=== PATIENT | male | born 1960 | race Hispanic/Latino ===

== ENCOUNTER 2018-03-31 06:07 | Day surgery (SDC) | payer BC ==
[2018-03-23 12:04] VITALS: BMI 36.9
[2018-03-31] MEDS ORDERED: Lidocaine 2% Inj (20ml) ONE (06:30)
[2018-03-31] MEDS ORDERED: Iodixanol 320 MG/ML 100 ML BOTTLE IV ONE (06:31)
[2018-03-31] MEDS ORDERED: Iohexol 350mgl/ml 50 ML ONE (06:31)
[2018-03-31] MEDS ORDERED: Nitroglycerin 50mg in D5W 0 MG/0 ML BOTTLE IV ONE (06:31)
[2018-03-31] MEDS ORDERED: Phenylephrine 10 mg/ml Inj ONE (06:31)
[2018-03-31] MEDS ORDERED: Iodixanol 320 MG/ML 200 ML BOTTLE IV ONE (06:31)
[2018-03-31 06:45] VITALS: RESP 18
[2018-03-31] MEDS ORDERED: Midazolam 2 MG/2 ML VIAL ONE ×2 (07:44→08:00)
[2018-03-31] MEDS ORDERED: Sodium Chloride 0.9% 1,000 ML IV SCH (08:45)
[2018-03-31 09:02] VITALS: TEMP 97.5
--- NOTE | 2018-03-31 09:56 | CARDCATH ---
PROCEDURE DATE: 03/31/2018 PROCEDURES: 1. Selective left and right coronary angiography. 2. Left ventriculography. 3. Right femoral arteriography. 4. Angio-Seal deployment. HISTORY: This is a 57-year-old man with a history of hypertension, who was recently evaluated for chest pain. A stress test showed evidence of questionable anterior ischemia and cardiac catheterization was advised. INDICATIONS: 1. Chest pain. 2. Abnormal stress test. FINDINGS: HEMODYNAMICS: Aortic pressure was 116/70 with left ventricular pressure of 116/14. CORONARY ANATOMY: 1. The left mainstem was large and normal. 2. The left anterior descending artery was moderately calcified in its proximal segment. There was a long tubular 50% stenosis noted within the proximal segment. This was followed by 50% lesion after the takeoff of the first septal direct marketing specialist. The distal LAD had mild irregularities and was a moderate-sized vessel. The diagonal branches had no evidence of significant disease. 3. The left circumflex artery and its branches had no significant disease. 4. The right coronary artery was dominant with a 50% lesion in its distal segment. Posterior descending artery was fairly small as was posterolateral branch. These were free of disease. LEFT VENTRICULOGRAPHY: A hand injection was performed in the left ventricle revealing mild to moderate focal mid anterolateral hypokinesis with normal ejection fraction of 50%. There was no aortic valve gradient noted on catheter pullback. Mitral regurgitation was not assessed. RIGHT FEMORAL ARTERIOGRAPHY: A right femoral arteriogram was performed in the STINSON projection. This revealed no evidence of significant disease in the appropriate level of arterial puncture. The puncture site was then closed with deployment of an Angio-Seal device. CONCLUSION: 1. Moderate proximal and mid left anterior descending disease. 2. Moderate distal right coronary artery disease. 3. Mildly reduced left ventricular systolic function. RECOMMENDATIONS: Given the above findings, intensified risk factor control and medical therapy will be advised. Beta carlito has initiated. Aspirin will continue. Statin therapy will be initiated as well. The patient is already on an angiotensin receptor carlito. Weight loss and regular exercise will be encouraged. A followup stress testing will be planned as needed. Yobany Alston MD cc: Dennis Gonzalez MD. [facility] # [id number]
[2018-03-31 10:42] VITALS: O2SAT 94
[2018-03-31 10:57] VITALS: PULSE 65
[2018-03-31 11:16] VITALS: BP 143/92
== END 2018-03-31 12:00 | disposition home or self-care (01) ==
LOC: CATH 06:07
PROVIDERS: ATTEND Internal Medicine Cardiovascular Disease
DX: I25.10 Atherosclerotic heart disease of native coronary artery without angina pectoris (principal); I10 Essential (primary) hypertension
CPT/HCPCS: 36415; 86850; 86900; 93458; 99152; 99153; C1760; C1769; C2629; J1644; J2250; J3010; J7030 ×2; Q9966; Q9967 ×2

== ENCOUNTER 2019-01-25 10:36 | Emergency (ER) | payer OTHER, BC ==
[2019-01-25 10:46] VITALS: BMI 34.4
--- NOTE | 2019-01-25 11:29 | ED PDOC ---
Arrival/HPI - General Chief Complaint: Upper Extremity Problem/Injury Time Seen by Provider: 01/25/19 11:14 Historian: Patient - History of Present Illness Narrative History of Present Illness (Text): 01/25/19 11:28 58 M with no significant pmh presents with cc of upper left arm pain. Patient reports that while he was lifting a heavy object while he was on his knees, he felt a tear on his upper left arm. Patient denies any chest pain, back pain, neck pain, or any other physical complaint. 01/25/19 11:55 Time/Duration: 24 hours Symptom Onset: Sudden Symptom Course: Unchanged Activities at Onset: Significant Context: Work Past Medical History - Provider Review Nursing Documentation Reviewed: Yes - Infectious Disease Hx of Infectious Diseases: None - Tetanus Immunization Tetanus Immunization: Unknown - Cardiac Hx Cardiac Disorders: Yes Hx Hypertension: Yes - Pulmonary Hx Respiratory Disorders: No - Neurological Hx Neurological Disorder: No - HEENT Hx HEENT Disorder: No - Renal Hx Renal Disorder: No - Endocrine/Metabolic Hx Endocrine Disorders: No - Hematological/Oncological Hx Blood Disorders: No - Integumentary Hx Dermatological Disorder: No - Musculoskeletal/Rheumatological Hx Musculoskeletal Disorders: No - Gastrointestinal Hx Gastrointestinal Disorders: Yes Hx Crohn's Disease: Yes - Genitourinary/Gynecological Hx Genitourinary Disorders: No - Psychiatric Hx Psychophysiologic Disorder: No Hx Substance Use: No - Surgical History Other/Comment: Lap Band Surgey - Anesthesia Hx Anesthesia Reactions: No - Suicidal Assessment Feels Threatened In Home Enviroment: No Family/Social History - Physician Review Nursing Documentation Reviewed: Yes Family/Social History: Unknown Family HX Smoking Status: Never Smoked Hx Alcohol Use: No Hx Substance Use: No Hx Substance Use Treatment: No Allergies/Home Meds Allergies/Adverse Reactions: Allergies Penicillins Allergy (Verified 01/25/19 10:46) ANAPHYLAXIS Home Medications: Home Meds Medication Instructions Recorded Confirmed Aspirin [Ecotrin] 81 mg PO DAILY 02/18/16 01/25/19 Metoprolol Succinate XL [Toprol XL] 50 mg PO DAILY 03/23/18 01/25/19 Amlodipine/Valsartan [Exforge 10 1 tab PO DAILY 03/25/18 01/25/19 mg-320 mg] Rosuvastatin Calcium [Crestor] 20 mg PO DAILY 03/31/18 01/25/19 Esomeprazole Magnesium [Nexium] 20 mg PO DAILY 01/25/19 01/25/19 Meloxicam [Mobic] 15 mg PO DAILY 01/25/19 01/25/19 Review of Systems - Physician Review All systems were reviewed & negative as marked: Yes - Review of Systems Constitutional: Normal Eyes: Normal ENT: Normal Respiratory: Normal Cardiovascular: Normal Gastrointestinal: Normal Genitourinary Male: Normal Musculoskeletal: Myalgias (Left upper arm) Skin: Normal Neurological: Normal Endocrine: Normal Hemo/Lymphatic: Normal Psychiatric: Normal Physical Exam - Physical Exam Narrative Physical Exam (Text): 01/25/19 11:35 Gen: VS reviewed, alert, well developed, well nourished, nontoxic, mild distress Eye: EOMI, PERRL CV: regular rate, regular rhythm, no rubs,no murmur, S1, S2 Pulm: no distress, clear to auscultation, no wheeze, no rhonchi, breath sounds equal, no rales Ext: no edema. Able to flex arm at elbow with diminished strength. Bulge deformity distal biceps head Skin: good color, no rash, no cyanosis Psych: responds appropriately to questions, normal affect Neuro: oriented x3, CN2-12 intact grossly, motor intact, sensation intact 01/25/19 11:56 Vital Signs Temp Pulse Resp BP Pulse Ox 01/25/19 10:48 98.2 F 69 18 124/79 95 Medical Decision Making ED Course and Treatment: 01/25/19 11:53 Impression: 58 M presents with cc of upper left arm pain Plan: -- Left humerus X Ray -- Reassess and disposition Prior Visits: Notes and results from previous visits were reviewed. Progress Notes: 01/25/19 11:57 patient seen for left upper biceps muscle pain after lifting heavy object, clinically consistent with tear, will get xray to rule out avulsion fracture, will splint and refer to ortho. - RAD Interpretation Narrative RAD Interpretations (Text): 01/25/19 12:51 Humerus X Ray FINDINGS: BONES: Normal. No fracture or focal lesion. SOFT TISSUES: Normal. OTHER FINDINGS: None. IMPRESSION: Normal radiographs of left humerus. Radiology Orders: 01/25/19 11:22 HUMERUS LEFT [RAD] Stat Supervisor Car Installations: Radiologist - Scribe Statement The provider has reviewed the documentation as recorded by the Gladys Bruno All medical record entries made by the Scribe were at my direction and personally dictated by me. I have reviewed the chart and agree that the record accurately reflects my personal performance of the history, physical exam, medical decision making, and the department course for this patient. I have also personally directed, reviewed, and agree with the discharge instructions and disposition. Disposition/Present on Arrival - Present on Arrival Any Indicators Present on Arrival: No History of DVT/PE: No History of Uncontrolled Diabetes: No Urinary Catheter: No History of Decub. Ulcer: No History Surgical Site Infection Following: None - Disposition Have Diagnosis and Disposition been Completed?: Yes Diagnosis: Biceps muscle tear Disposition: HOME/ ROUTINE Disposition Time: 12:48 Patient Plan: Discharge Patient Problems: Current Active Problems Problem Status Onset Biceps muscle tear Acute Condition: STABLE Discharge Instructions (ExitCare): Muscle Strain (DC) Additional Instructions: follow up with the orthopedic surgeon as soon as possible-call today to make an appointment. Referrals: Dennis Gonzalez MD [Primary Care Provider] - Follow up with primary Rob Chicas MD [Staff Provider] - Follow up with primary Galileo Heller III, MD [Medical Doctor] - Follow up with primary Forms: [facility] ([place]), WORK NOTE
--- NOTE | 2019-01-25 12:41 | RAD ---
PROCEDURE: Radiographs of the left humerus. HISTORY: injury, avulsion? COMPARISON: None. TECHNIQUE: 2 views obtained. FINDINGS: BONES: Normal. No fracture or focal lesion. SOFT TISSUES: Normal. OTHER FINDINGS: None. IMPRESSION: Normal radiographs of left humerus.
[2019-01-25 13:08] VITALS: BP 120/69; PULSE 71; RESP 17; TEMP 97.9; O2SAT 96
== END 2019-01-25 13:07 | disposition home or self-care (01) ==
LOC: ED 10:36
DX: S46.212A Strain of muscle, fascia and tendon of other parts of biceps, left arm, initial encounter (principal); X50.0XXA Overexertion from strenuous movement or load, initial encounter